=== PATIENT | male | born 2000 | race Hispanic/Latino ===

== ENCOUNTER → 2024-11-28 07:11 | Outpatient (CLI) | payer OTHER, SELFPAY ==
--- NOTE | 2024-11-28 07:16 | DI.MRI.S_ITS ---
PROCEDURE: MR WRIST RT WO CON INDICATIONS: pain in rt wrist TECHNIQUE: Noncontrast coronal proton density fast spin echo and T2 fast spin echo with fat saturation; coronal 3-D gradient echo, axial T1 spin echo and T2 fast spin echo with fat saturation, sagittal T1 spin echo through the wrist. COMPARISON: None. FINDINGS: Image quality: Excellent. Bones and cartilage: The carpal bones are normally aligned. There is extensive marrow edema throughout the scaphoid bone with nondisplaced fracture through proximal portion of the scaphoid. No evidence of avascular necrosis. No other fracture or dislocation. Overlying cartilage surfaces appear normal. Carpal ligaments: The scapholunate and lunotriquetral ligaments appear intact. In the absence of intra-articular contrast, the extrinsic carpal ligaments are not well identified. On sagittal images, the pisohamate ligament appears intact. Triangular fibrocartilage complex: The triangular fibrocartilage appears intact. The adjacent meniscal homolog appears normal in the absence of intra-articular contrast. Low-grade intrasubstance partial-thickness tear involving extensor carpi ulnaris tendon at the level of distal ulnar and ulnar styloid is seen. Tendons and soft tissues: The carpal tunnel structures appear normal, including the median nerve. The ulnar nerve appears normal within Guyon's canal. All six extensor tendon compartments demonstrate normal morphology, without pathologic tendon sheath fluid. No soft tissue ganglion cysts. IMPRESSION: 1. Finding is consistent with a nondisplaced fracture through proximal portion of the scaphoid with extensive marrow edema. No other fracture or dislocation. No evidence of avascular necrosis. 2. Scapholunate and lunotriquetral ligaments are intact. 3. No definite focal TFCC tear. 4. Tendinosis and low-grade intrasubstance partial-thickness tear involving extensor carpi ulnaris tendon at the level of distal ulna and ulnar styloid. Rest of the extensor and flexor tendons are intact. Dictated by: Pankaj Paniagua M.D. on 11/30/2024 at 19:35 Approved by: Pankaj Paniagua M.D. on 11/30/2024 at 19:37
== END ==
PROVIDERS: Referring Provider Student in an Organized Health Care Education/Training Program; Visit Provider Student in an Organized Health Care Education/Training Program
DX: S66.811A Strain of other specified muscles, fascia and tendons at wrist and hand level, right hand, initial encounter (principal); M25.531 Pain in right wrist
CPT/HCPCS: 73221

== ENCOUNTER → 2024-12-05 11:31 | Outpatient (CLI) | payer OTHER, SELFPAY ==
--- NOTE | 2024-12-05 11:32 | DI.CT.S_ITS ---
PROCEDURE: CT WRIST RIGHT WITHOUT CON INDICATIONS: DISPLACED FX OF RIGHT PROXIMAL THIRD NAVICULAR TECHNIQUE: Noncontrast 1 mm axial sections acquired through the carpal bones, with coronal and sagittal reformats. For radiation dose reduction, the following was used: automated exposure control, adjustment of mA and/or kV according to patient size. COMPARISON: [facility], MR, MR WRIST RT WO CON, 11/28/2024, 7:39. FINDINGS: Image quality: Excellent. Bones: Nondisplaced transverse fracture again seen involving the proximal third of the scaphoid. Mild sclerosis is seen within the proximal pole without collapse. Remaining visualized osseous structures are intact. Soft tissues: Small radiocarpal effusion. The articular cartilages, ligaments, and tendons are not well evaluated on CT and are better seen on the prior MRI. Visualized musculature is normal in bulk. IMPRESSION: Nondisplaced transverse fracture of the proximal scaphoid. Mild sclerosis in the proximal pole may be related to healing changes versus mild or early osteonecrosis. No of the proximal pole. Approved by: Pérez Bradley M.D. on 12/06/2024 at 9:37
== END ==
PROVIDERS: Referring Provider Student in an Organized Health Care Education/Training Program; Visit Provider Student in an Organized Health Care Education/Training Program
DX: S62.031K Displaced fracture of proximal third of navicular [scaphoid] bone of right wrist, subsequent encounter for fracture with nonunion (principal); X58.XXXD Exposure to other specified factors, subsequent encounter
CPT/HCPCS: 73200